=== PATIENT | female | born 1960 | race Caucasian/White ===

== ENCOUNTER 2018-08-18 09:41 | Outpatient (CLI) | payer OTHER ==
--- NOTE | 2018-08-18 12:17 | ULT ---
PELVIC ULTRASOUND: HISTORY: Right-sided pain. The patient states the pain is actually on the left side. COMPARISON: None. TECHNIQUE: Transabdominal and endovaginal imaging of the pelvis is performed. FINDINGS: The patient had her uterus removed. Neither ovary is appreciated. The patient does state that one o vary does remain. There are no solid or cystic masses in the left or right adnexa. There is no free fluid. IMPRESSION: Unremarkable pelvic ultrasound. POS: GEE
== END 2018-08-18 09:42 | disposition home or self-care (01) ==
LOC: SCSULT 09:41
PROVIDERS: ATTEND Family Medicine
DX: R10.31 Right lower quadrant pain (principal)
CPT/HCPCS: 76856

== ENCOUNTER 2018-08-25 05:13 | Day surgery (SDC) | payer OTHER ==
[2018-08-24 16:32] VITALS: BMI 22.5
--- NOTE | 2018-08-24 21:44 | HP ---
HISTORY OF PRESENT ILLNESS: This is a 58-year-old female comes for a colonoscopy for colon cancer screening. The patient has no specific GI symptoms except for chronic reflux. Her bowel movement are regular. No history of hematochezia or melena. She does have family history of colon cancer. Apparently, her father had a colon cancer a few months ago. ALLERGIES: NONE. SOCIAL HISTORY: The patient is a smoker. Does drink alcohol socially. MEDICAL ILLNESSES: 1. Hypertension. 2. Fibromyalgia. 3. Chronic acid reflux. 4. Depression, chronic anxiety. 5. Hyperlipidemia. 6. Hysterectomy. 7. Right rotator cuff repair. PHYSICAL EXAMINATION: VITAL SIGNS: Pulse is 70, blood pressure 120/76. HEENT: Conjunctivae clear. NECK: Supple. No adenitis or thyromegaly noted. CARDIOVASCULAR: First and second heart sounds were heard. LUNGS: Clear to auscultation. ABDOMEN: Soft. No organomegaly. No tenderness. No masses. ADMITTING DIAGNOSIS: Colon cancer screening, family history of colon cancer and EGD for chronic acid reflex.. Job ID: [id number] [facility]
--- NOTE | 2018-08-25 09:05 | OP ---
DATE OF PROCEDURE: 08/25/2018 OPERATIVE PROCEDURE: Esophagogastroduodenoscopy with biopsy. PREOPERATIVE DIAGNOSES: Chronic acid reflux. POSTOPERATIVE DIAGNOSES: 1. Normal esophageal mucosa, no esophagitis seen. 2. Normal stomach and duodenum. A biopsy of the descending duodenum, does have history of intermittent diarrhea. DESCRIPTION OF PROCEDURE: The patient was placed on left lateral position undergoing sedation by Anesthesia Department. A Pentax video gastroscope under direct vision passed down the oropharynx to the GE junction into the stomach and subsequently into the descending duodenum. Although, the patient has history of chronic acid reflux, on endoscopy the esophageal mucosa appears completely normal. No esophagitis, only inflammatory changes seen. At the GE junction, no pathology seen. Retroflexion failed to show any pathology in fundus or cardia. The gastric body, gastric antrum, no pathology seen. The duodenal bulb, descending duodenum, no pathology seen. Random biopsies obtained of the descending duodenum. The stomach decompressed and the scope removed. DISCHARGE PLANNING: This is a 58-year-old female with family history of colon cancer and chronic acid reflux. She also gave a history of intermittent diarrhea. The EGD showed no pathology. The colon exam does not show any colitis, but does have sigmoid diverticular disease. Random biopsy obtained of the ascending colon, transverse colon, sigmoid colon. Also the polyp from the sigmoid colon removed, but the polyp was not retrieved. DISCHARGE RECOMMENDATION: 1. The patient to call me if she develops abdominal pain or hematochezia. 2. Resume all medications as before. 3. Repeat colonoscopy in 3 years because of family history of colon cancer. Job ID: [id number]
--- NOTE | 2018-08-25 09:11 | OP ---
DATE OF PROCEDURE: 08/25/2018 OPERATIVE PROCEDURE: Colonoscopy with biopsy, polypectomy. PREOPERATIVE DIAGNOSIS: A 58-year-old female who underwent colonoscopy for colon cancer screening. She also has history of intermittent diarrhea. POSTOPERATIVE DIAGNOSIS: Sigmoid diverticular disease. Small sessile sigmoid polyp removed with snare cautery, but the polyp was not retrieved. The polyp was too small and lost in the colonic lumen. OPERATIVE PROCEDURE: Colonoscopy with polypectomy and biopsy. DESCRIPTION OF PROCEDURE: The patient was placed on her left lateral position and was given sedation by Anesthesia Department. A rectal exam was done before the scope was advanced into the rectum. No lesions felt on rectal exam. A Pentax video colonoscope was introduced into the rectum and advanced up to the cecum. The prep is very good. The mucosa appears normal throughout the colon with normal vascular pattern. The appendiceal orifice, ileocecal wall, cecum, no pathology. Withdrawal of scope in the cecum, ascending colon, hepatic flexure, transverse colon, splenic flexure, descending colon, no pathology. The sigmoid colon showed scattered diverticular disease. The patient was found to have a small polyp. This was removed with snare cautery. However, the polyp was not retrieved as the piece was too small and lost in the colonic lumen. Retroflexion of scope in the rectum showed no pathology. Also , random biopsies obtained from the ascending colon and transverse colon. Job ID: [id number] [facility]
[2018-08-25] MEDS ORDERED: Lidocaine 1% PF 5 ML VIAL ONE (14:39)
[2018-08-25] MEDS ORDERED: PROPOFOL 200 MG/20 ML VIAL ONE (14:39)
== END 2018-08-25 09:05 | disposition home or self-care (01) ==
LOC: SDC 05:13
PROVIDERS: ATTEND Internal Medicine Gastroenterology
PROC: 0DB98ZX Excision of Duodenum, Via Natural or Artificial Opening Endoscopic, Diagnostic (ICD-10-PCS; principal; 2018-08-25)
PROC: 0DBE8ZX Excision of Large Intestine, Via Natural or Artificial Opening Endoscopic, Diagnostic (ICD-10-PCS; principal; 2018-08-25)
DX: Z12.11 Encounter for screening for malignant neoplasm of colon (principal); K21.9 Gastro-esophageal reflux disease without esophagitis; K57.30 Diverticulosis of large intestine without perforation or abscess without bleeding; I10 Essential (primary) hypertension; M79.7 Fibromyalgia; F32.9 Major depressive disorder, single episode, unspecified; F41.9 Anxiety disorder, unspecified; E78.5 Hyperlipidemia, unspecified; F17.200 Nicotine dependence, unspecified, uncomplicated; Z90.710 Acquired absence of both cervix and uterus; Z80.0 Family history of malignant neoplasm of digestive organs; Z98.890 Other specified postprocedural states
CPT/HCPCS: 88305; J2001; J2704